=== PATIENT | female | born 1985 | race Caucasian/White ===

== ENCOUNTER 2020-10-16 10:46 | Emergency (ER) | payer MEDICAID ==
[~2020-10-16] VITALS: Ht 154.9 cm; Wt 67.1 kg
[2020-10-16 11:01] VITALS: BP 120/69
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
[2020-10-16] MEDS ORDERED: ACYC400T14 PO (11:48)
[2020-10-16] MEDS ORDERED: ACET-8386 PO (11:48)
[2020-10-16 11:53] VITALS: BP 120/69
--- NOTE | 2020-10-16 11:53 | NUR ---
Patient discharged with v/s stable. Written and verbal after care instructions given and explained. Patient alert, oriented and verbalized understanding of instructions. Ambulatory with steady gait. All questions addressed prior to discharge. ID band removed. Patient advised to follow up with PMD. Rx of HYDROCODONE/ACETAMINOPHEN AND ACYCLOVIR given. Patient educated on indication of medication including possible reaction and side effects. Opportunity to ask questions provided and answered.
== END 2020-10-16 11:53 | disposition home or self-care (01) ==
LOC: MED 10:46
DX: B02.9 Zoster without complications (principal); Z90.49 Acquired absence of other specified parts of digestive tract; Z79.899 Other long term (current) drug therapy
CPT/HCPCS: 99283